=== PATIENT | male | born 1940 | race Caucasian/White ===

== ENCOUNTER 2021-02-20 12:54 | Outpatient (CLI) | payer MEDICARE | END 2021-02-20 12:55 | disposition home or self-care (01) | LOC: BICMRI 12:54 | PROVIDERS: ATTEND Orthopaedic Surgery | DX: S46.312A Strain of muscle, fascia and tendon of triceps, left arm, initial encounter (principal) ==

== ENCOUNTER 2021-03-06 12:07 | Outpatient (CLI) | payer MEDICARE ==
[2021-03-06 15:31] LABS: #Eosinphils 0.3 10x3/uL (0.0-0.5); #Monocytes 0.6 10x3/uL (0.0-1.1); #Neutrophils 3.3 10x3/uL (1.5-8.4); %Basophils 0.6 % (0.0-2.0); %Eosinophils 3.8 % (0.0-6.0); %Lymphocytes 40.9 % (18.0-47.0); %Monocytes 8.3 % (0.0-10.0); %Neutrophils 46.1 % (40.0-75.0); Hemoglobin 12.7 g/dL (13.5-17.5); Mean Corpuscular HGB CONC 32.7 g/dL (32.0-36.0); Mean Corpuscular Hemoglobin 32.2 pg (27.0-33.0); Mean Corpuscular Volume 98.2 fl (81.2-95.1); Platelet Count 257 10x3/uL (150-450); RBC Distribution Width 13.7 % (11.5-14.5); Red Blood Cell (RBC) Count 3.95 10x6/uL (4.32-5.72); White Blood Cell (WBC) Count 7.1 10x3/uL (3.5-10.5)
[2021-03-06 15:46] LABS: Anion Gap 13 mmol/L (10-20); BUN (Urea Nitrogen) 20 mg/dL (8.4-25.7); Calc. Creatinine Clearance 0 mL/min (70-130); Calcium 8.8 mg/dL (7.8-10.44); Carbon Dioxide 22 mmol/L (23-31); Chloride 107 mmol/L (98-107); Glucose 166 mg/dL (83-110); Potassium 4.4 mmol/L (3.5-5.1); Sodium 138 mmol/L (136-145)
[2021-03-07 00:46] LABS: SARS-CoV-2 PCR by NAA Not Detected (NotDetected)
== END 2021-03-06 12:08 | disposition home or self-care (01) ==
LOC: LABBT 12:07
PROVIDERS: ATTEND Orthopaedic Surgery
DX: Z01.818 Encounter for other preprocedural examination (principal); S46.312A Strain of muscle, fascia and tendon of triceps, left arm, initial encounter; Z20.822 Contact with and (suspected) exposure to COVID-19
CPT/HCPCS: 80048; 85025; 93005; U0003; U0005; 93010

== ENCOUNTER 2021-05-14 12:11 | Outpatient (CLI) | payer MEDICARE ==
[2021-05-14 13:04] LABS: #Basophils 0.1 10x3/uL (0.0-0.2); #Eosinphils 0.2 10x3/uL (0.0-0.5); #Monocytes 0.9 10x3/uL (0.0-1.1); #Neutrophils 4.2 10x3/uL (1.5-8.4); %Basophils 0.6 % (0.0-2.0); %Eosinophils 2.8 % (0.0-6.0); %Lymphocytes 35.9 % (18.0-47.0); %Monocytes 10.4 % (0.0-10.0); %Neutrophils 49.9 % (40.0-75.0); Hemoglobin 12.7 g/dL (13.5-17.5); Mean Corpuscular HGB CONC 32.7 g/dL (32.0-36.0); Mean Corpuscular Hemoglobin 31.7 pg (27.0-33.0); Mean Corpuscular Volume 96.8 fl (81.2-95.1); Mean Platelet Volume 11.1 fl (7.4-10.4); Platelet Count 259 10x3/uL (150-450); RBC Distribution Width 13.2 % (11.5-14.5); Red Blood Cell (RBC) Count 4.01 10x6/uL (4.32-5.72); White Blood Cell (WBC) Count 8.5 10x3/uL (3.5-10.5)
[2021-05-14 13:36] LABS: Anion Gap 14 mmol/L (10-20); BUN (Urea Nitrogen) 27 mg/dL (8.4-25.7); Calc. Creatinine Clearance 0 mL/min (70-130); Carbon Dioxide 21 mmol/L (23-31); Chloride 107 mmol/L (98-107); Glucose 110 mg/dL (83-110); Potassium 4.8 mmol/L (3.5-5.1); Sodium 137 mmol/L (136-145)
[2021-05-15 13:32] LABS: SARS-CoV-2 PCR by NAA Not Detected (NotDetected)
== END 2021-05-14 12:12 | disposition home or self-care (01) ==
LOC: LABBT 12:11
PROVIDERS: ATTEND Orthopaedic Surgery
DX: Z01.812 Encounter for preprocedural laboratory examination (principal); S46.312A Strain of muscle, fascia and tendon of triceps, left arm, initial encounter; Z20.822 Contact with and (suspected) exposure to COVID-19
CPT/HCPCS: 80048; 85025; U0003; U0005

== ENCOUNTER 2021-05-17 11:05 | Outpatient (CLI) | payer MEDICARE ==
[2021-05-18 13:26] LABS: SARS-CoV-2 PCR by NAA DETECTED (NotDetected)
== END 2021-05-17 11:06 | disposition home or self-care (01) ==
LOC: LABBT 11:05
PROVIDERS: ATTEND Orthopaedic Surgery
DX: U07.1 COVID-19 (principal); S46.312A Strain of muscle, fascia and tendon of triceps, left arm, initial encounter
CPT/HCPCS: U0003; U0005

== ENCOUNTER 2021-06-18 10:33 | Outpatient (CLI) | payer MEDICARE ==
[2021-06-18 12:05] LABS: #Eosinphils 0.2 10x3/uL (0.0-0.5); #Monocytes 0.7 10x3/uL (0.0-1.1); #Neutrophils 4.2 10x3/uL (1.5-8.4); %Basophils 0.5 % (0.0-2.0); %Lymphocytes 32.3 % (18.0-47.0); %Monocytes 9.2 % (0.0-10.0); %Neutrophils 54.7 % (40.0-75.0); Hemoglobin 12.5 g/dL (13.5-17.5); Mean Corpuscular HGB CONC 32.4 g/dL (32.0-36.0); Mean Corpuscular Hemoglobin 31.7 pg (27.0-33.0); Mean Platelet Volume 11.8 fl (7.4-10.4); Platelet Count 255 10x3/uL (150-450); RBC Distribution Width 13.4 % (11.5-14.5); Red Blood Cell (RBC) Count 3.94 10x6/uL (4.32-5.72); White Blood Cell (WBC) Count 7.7 10x3/uL (3.5-10.5)
[2021-06-18 12:18] LABS: Anion Gap 14 mmol/L (10-20); BUN (Urea Nitrogen) 26 mg/dL (8.4-25.7); Calc. Creatinine Clearance 0 mL/min (70-130); Calcium 8.8 mg/dL (7.8-10.44); Carbon Dioxide 21 mmol/L (23-31); Chloride 107 mmol/L (98-107); Glucose 132 mg/dL (83-110); Sodium 137 mmol/L (136-145)
== END 2021-06-18 10:34 | disposition home or self-care (01) ==
LOC: LABBT 10:33
PROVIDERS: ATTEND Family Medicine
DX: Z01.812 Encounter for preprocedural laboratory examination (principal); S46.312A Strain of muscle, fascia and tendon of triceps, left arm, initial encounter; Z20.822 Contact with and (suspected) exposure to COVID-19
CPT/HCPCS: 80048; 85025

== ENCOUNTER 2021-06-21 08:51 | Day surgery (SDC) | payer MEDICARE ==
[2021-05-09 14:02] VITALS: BMI 28.8
[2021-06-21] MEDS ORDERED: Fentanyl 250 MCG/5 ML VIAL ONE (12:06)
[2021-06-21] MEDS ORDERED: Lidocaine 1% (PF) 30 ML VIAL ONE (12:19)
[2021-06-21] MEDS ORDERED: Dexamethasone 20 MG/5 ML VIAL ONE (12:31)
[2021-06-21] MEDS ORDERED: Ketorolac Tromethamine 30 MG/ML VIAL ONE (12:31)
[2021-06-21] MEDS ORDERED: Ondansetron PF 4 MG/2 ML Vial ONE (12:31)
[2021-06-21] MEDS ORDERED: PROPOFOL 200 MG/20 ML VIAL ONE (12:31)
[2021-06-21] MEDS ORDERED: Lidocaine 1% PF 5 ML VIAL ONE (12:31)
[2021-06-21] MEDS ORDERED: EPINEPHrine 1 MG/ML AMP ONE (13:37)
[2021-06-21] MEDS ORDERED: Bupivacaine PF 0.5% 30 ML VIAL ONE (13:37)
== END 2021-06-21 16:07 | disposition home or self-care (01) ==
LOC: SDC 08:51
PROVIDERS: ATTEND Orthopaedic Surgery
PROC: 01N40ZZ Release Ulnar Nerve, Open Approach (ICD-10-PCS; principal; 2021-06-21)
PROC: 0LM40ZZ Reattachment of Left Upper Arm Tendon, Open Approach (ICD-10-PCS; 2021-06-21)
DX: S46.312A Strain of muscle, fascia and tendon of triceps, left arm, initial encounter (principal); G56.22 Lesion of ulnar nerve, left upper limb; M19.90 Unspecified osteoarthritis, unspecified site; I10 Essential (primary) hypertension; G89.29 Other chronic pain; Z86.16 Personal history of COVID-19; Z86.73 Personal history of transient ischemic attack (TIA), and cerebral infarction without residual deficits; Z79.82 Long term (current) use of aspirin; Z79.899 Other long term (current) drug therapy; W19.XXXA Unspecified fall, initial encounter
CPT/HCPCS: 76000; C1713; J0171; J1100; J1885; J2001; J2405; J2704; J3010; S0020